=== PATIENT | female | born 1980 | race Caucasian/White ===

== ENCOUNTER 2025-04-30 10:55 | Emergency (ER) | payer OTHER, SELFPAY ==
[2025-04-30 11:09] VITALS: BP 111/69; PULSE 82; RESP 17; TEMP 36.9; O2SAT 94; BMI 25.6
--- NOTE | 2025-04-30 11:21 | EDNOTE_ITS ---
ED General RME/HPI General Chief complaint: Dental/Oral/Throat Stated complaint: Throat pain, lower back pain, abdomen Time Seen by Provider: 04/30/25 10:58 Arrival date/time: 04/30/25 10:55 44-year-old female presents to the Emergency Department today along with her daughter daughter is being seen for separate complaint patient reports that she has chronic pain is visiting from [place] and does not have her pain medications. Patient reports takes oxycodone daily Limitations: no limitations Related Data Allergies Allergy/AdvReac Type Severity Reaction Status Date / Time tramadol Allergy Verified 04/30/25 11:02 tylenol with codiene Allergy Uncoded 04/30/25 11:02 Review of Systems Review of Systems Systems Reviewed: All systems reviewed, normal except as documented Constitutional Constitutional: Reports system reviewed and no additional complaints, except as documented, Denies fever(s) and Denies headache(s) Eyes Eyes: Reports system reviewed and no additional complaints, except as documented and Denies blurry vision ENT Ears, Nose, Mouth, and Throat: Reports system reviewed and no additional complaints, except as documented, Denies headache(s), Denies nasal congestion and Denies nasal discharge Cardiovascular Cardiovascular: Reports system reviewed and no additional complaints, except as documented, Denies chest pain and Denies dyspnea Respiratory Respiratory: Reports system reviewed and no additional complaints, except as documented, Denies chest congestion, Denies cough and Denies dyspnea Gastrointestinal Gastrointestinal: Reports system reviewed and no additional complaints, except as documented and Denies abdominal pain Musculoskeletal Musculoskeletal: Reports system reviewed and no additional complaints, except as documented and Reports back pain Integumentary/Breasts Skin/Breast: Reports system reviewed and no additional complaints, except as documented and Denies rash Neurologic Neurologic: Reports system reviewed and no additional complaints, except as documented, Reports as per HPI and Denies headache(s) Past Medical History Social History SMOKING STATUS: Former smoker ED Exam General Limitations: Present no limitations General appearance: Present alert and in no apparent distress Head Head exam: Present atraumatic Eye Eye exam: Present normal appearance, PERRL and EOMI ENT ENT exam: Present normal exam, normal oropharynx and mucous membranes moist Neck Neck exam: Present normal inspection, full ROM and trachea midline Chest Chest inspection: Present normal inspection and symmetric chest wall rise Respiratory Respiratory exam: Present normal lung sounds bilaterally Cardiovascular Cardiovascular exam: Present regular rate, normal rhythm and normal heart sounds Abdominal Exam Abdominal exam: Present soft and normal bowel sounds Extremities Exam Extremities exam: Present normal inspection and full ROM Back Exam Back exam: Present normal inspection and full ROM Neurological Exam Neurological exam: Present alert, oriented X3 and CN II-XII intact Psychiatric Psychiatric exam: Present normal affect and normal mood Skin Skin exam: Present warm, dry, intact and normal color Course Quality Measures none Orders Category Date Time Status oxyCODONE/APAP 5/325 [Percocet 5/325] Med 04/30/25 11:20 Discontinued 1 tab PO X1 ONE Vital Signs Vital signs: Vital Signs Temperature 98.4 F 04/30/25 11:09 Pulse Rate 82 04/30/25 11:09 Respiratory Rate 17 04/30/25 11:09 Blood Pressure 111/69 04/30/25 11:09 Pulse Oximetry (%) 94 L 04/30/25 11:09 Oxygen Delivery Method Room Air 04/30/25 11:09 O2 saturation 94% room air Discharge Plan Plan Patient Disposition: HOME (Self Care) Discharge Disposition comment: Stable Problem List Clinical Impression: Chronic pain Patient/Caregiver Discharge Instructions Education Materials: ED Chronic Pain Additional Instructions: Please follow up with your primary care doctor in the next 24-48hrs for any worsening symptoms return here immediately Print Language: Nicaraguan Stand Alone Forms: [facility] Award Info., Patient Portal Info Letter PA/CORRECTIONAL TREATMENT SPECIALIST Supervising Physician PA/CORRECTIONAL TREATMENT SPECIALIST Supervising Physician: Dr blair MDM Narrative [facility] hospital course (for use when minimal MDM required): 44-year-old female presents to the Emergency Department today along with her daughter daughter is being seen for separate complaint patient reports that she has chronic pain is visiting from [place] and does not have her pain medications. Patient reports takes oxycodone daily On exam patient well-appearing does not appear look toxic no acute distress Patient given 1 dose of oxycodone here explained to the patient she should follow-up with her PCP for pain management Patient has no acute emergent complaints Patient discharged home in no distress to follow-up with primary care doctor in the next 24 to 48 hours and for any worsening symptoms to return to the ER immediately Clinical Information Provided by: patient Medical Records reviewed None Meds/Rx considered, not ordered None Labs/Rad/Tests considered, not ordered None Chronic Illness/Social Conditions which may negatively complicate care or outcome(s)-explain: None or not applicable EKG EKG not done Labs Labs: none Imaging Imaging interpretation: none Medication Administration(s) Medication Administration History Discontinued Medications Oxycodone/Acetaminophen (Oxycodone/Apap 5/325 Tablet) 1 tab PO X1 ONE Stop: 04/30/25 11:21 Last Admin: 04/30/25 11:43 Dose: 1 tab Documented By: Given Diagnosis Differential Diagnosis ED Complaint MDM: Chronic pain, back pain
== END 2025-04-30 12:33 | disposition home or self-care (01) ==
LOC: SERX 12:02
PROVIDERS: Emergency Provider Nurse Practitioner Primary Care
DX: R07.0 Pain in throat (principal); M54.50 Low back pain, unspecified; R10.9 Unspecified abdominal pain; G89.29 Other chronic pain
CPT/HCPCS: 99281; A9270